=== PATIENT | female | born 1940 | race Caucasian/White ===

== ENCOUNTER → 2016-08-05 | Outpatient (CLI) | payer OTHER, MEDICARE | LOC: BMCIMAGING 14:02 | PROVIDERS: ATTEND Internal Medicine | DX: Z12.31 Encounter for screening mammogram for malignant neoplasm of breast (principal) | CPT/HCPCS: G0202 ==

== ENCOUNTER → 2016-08-26 | Outpatient (CLI) | payer OTHER, MEDICARE | LOC: BMCIMAGING 11:26 | PROVIDERS: ATTEND Internal Medicine | DX: R92.8 Other abnormal and inconclusive findings on diagnostic imaging of breast (principal) | CPT/HCPCS: G0206 ==

== ENCOUNTER → 2016-09-24 | Outpatient (CLI) | payer OTHER, MEDICARE | LOC: BMCIMAGING 09:36 | PROVIDERS: ATTEND Internal Medicine | DX: Z12.39 Encounter for other screening for malignant neoplasm of breast (principal); N63 Unspecified lump in breast | CPT/HCPCS: 76641; G0206 ==

== ENCOUNTER 2017-07-16 14:58 | Emergency (ER) | payer OTHER, MEDICARE ==
--- NOTE | 2017-07-16 15:00 | EDPHY ---
H & P Time Seen by Provider: 07/16/17 14:59 HPI/ROS: HPI: This is a 76-year-old female who presents with Chief Complaint: Mechanical fall, laceration over left eye Location: Quality: Duration: Signs and Symptoms: No bleeding, no radiation, no numbness, no weakness, no tingling, no incontinence, no decreased range of motion, no swelling, no pain, no fever Timing: Severity: Context: Patient arrives via EMS with complaints of mechanical fall and laceration above her left eyebrow. Last tetanus booster given in 2012. Denies LOC/head injury/neck pain/dizziness/nausea/vomiting/amnesia. Modifying Factors: Comment: ROS: see HPI Constitutional: No fever, no chills, no weight loss Eyes: No blurred vision Respiratory: No shortness of breath, no cough Cardiovascular: No chest pain Gastrointestinal: No nausea, no vomiting no diarrhea Genitourinary: No dysuria Extremities: No myalgias Neurologic: No weakness, no numbness Skin: No rashes Hematologic: No bruising, no bleeding MEDICAL/SURGICAL/SOCIAL HISTORY: Medical history: Generally healthy. Does not take any regular medications. Surgical history: Tonsillectomy Social history: CONSTITUTIONAL: awake and alert, no obvious distress HEENT: Atraumatic and normocephalic, PERRL, EOMI. no globe entrapment, no raccoon eyes. no Nevarez signs.Tympanic membranes clear. No tympanic membrane rupture. Nares patent; no septal hematoma. Oropharynx clear, no exudate and moist pink mucosa. No malocclusion. no dental trauma. Airway patent. No lymphadenopathy. NECK: supple, no midline tenderness, flexion 45 degrees, extension 45 degrees, right and left lateral flexion 45 degrees. No meningismus. Cardiovascular: Normal S1/S2, regular rate, regular rhythm, without murmur rub or gallop. PULMONARY/CHEST: Symmetrical and nontender. no crepitus. Clear to auscultation bilaterally. Good air movement. No accessory muscle usage. ABDOMEN: Soft, nondistended, nontender, no ecchymosis, no rebound, no guarding , no peritoneal signs, no masses or organomegaly. No CVAT. PELVIC: no pain with rocking; bilateral hips flexion 125 degrees, extension 30 degrees, with no pain internal rotation and no pain external rotation. BACK: No midline tenderness, no paraspinous spasm, deep tendon reflexes 2/2, no pain with straight leg raise EXTREMITIES: 2/2 pulses, no deformities, no clubbing, no cyanosis or edema. NEUROLOGICAL: no focal neuro deficits. GCS 15. SKIN: Warm and dry, no erythema. no rash. Good capillary refill. Source: Patient, EMS Exam Limitations: No limitations - Personal History Tetanus Vaccine Date: 2012 - Medical/Surgical History Hx Asthma: No Hx Chronic Respiratory Disease: No Hx Diabetes: No Hx Cardiac Disease: No Hx Renal Disease: No Hx Cirrhosis: No Hx Alcoholism: No Hx HIV/AIDS: No Hx Splenectomy or Spleen Trauma: No Other PMH: tonsilectomy - Social History Smoking Status: Former smoker Allergies/Adverse Reactions: No Known Allergies Allergy (Unverified 09/27/13 12:37) Home Medications: Medication Instructions Recorded Alprazolam 09/27/[address] Barksdale 10/07/13 Ciprofloxacin [Cipro] 500 mg PO BID #20 tab 01/18/15 metroNIDAZOLE [Flagyl] 500 mg PO BID #20 tab 01/18/15 Departure - Departure Referrals: Patient,NotPresent [Primary Care Provider] - As per Instructions
--- NOTE | 2017-07-16 15:05 | EDPHY ---
H & P Smoking Status: Former smoker Time Seen by Provider: 07/16/17 14:59 HPI/ROS: CHIEF COMPLAINT: Fall, laceration HISTORY OF PRESENT ILLNESS: The patient is a 76-year-old female who presents emergency department after tripping while getting on the bus. The patient was running for the bus when she fell. She struck her head on part of the bus. She stated laceration to her left brow. Patient did not lose consciousness. She states there was a doctor on the bus shoe applied pressure to her wound. Patient denies neck or back pain. No chest pain or shortness of breath. No abdominal pain. No pelvic pain. Patient has mild discomfort of her left cook. Minimal nausea. REVIEW OF SYSTEMS: My complete review of systems is negative except as mentioned in the HPI. ( Lorene Alamo) Allergies/Adverse Reactions: No Known Allergies Allergy (Unverified 09/27/13 12:37) Home Medications: Medication Instructions Recorded Alprazolam 09/27/13 Medical Decision Making Procedures: Procedure: Laceration repair. Verbal consent was obtained from the patient. The 4 cm deep, complex, vertical laceration left side of the forehead passing through the left eyebrow was anesthetized in the usual fashion using 6 mL of 0.5% bupivacaine with epinephrine. The wound was irrigated, draped and explored to its base with a gloved finger. There were no deep structures involved. No tendon injury was identified. The wound was repaired with 2 layer closure: #6, horizontal buried sutures of 5 0 Vicryl. Subcuticular running suture of 6 0 Vicryl was used to close the cutaneous layer. Good hemostasis was achieved and patient tolerated procedure well. Steri-Strips were applied. The procedure was performed by myself. (Ruby Rivera) ED Course/Re-evaluation: In the emergency department I met EMS on arrival. I took report from the provider. Patient was wearing his C-collar arrival. After my initial exam she had no spinal tenderness. Nexus was negative. The C-collar was removed. The patient did not lose consciousness. She has no focal deficits. I do not think she needs CT imaging. (Lorene Alamo) Differential Diagnosis: My differential includes but is not limited to laceration, skull fracture, foreign body, concussion, subarachnoid hemorrhage, subdural hematoma, epidural hematoma (Lorene Alamo) Departure - Departure Disposition: Home, Routine, Self-Care Clinical Impression: Laceration of brow without complication Qualifiers: Encounter type: initial encounter Qualified Code(s): S01.81XA - Laceration without foreign body of other part of head, initial encounter Condition: Good Instructions: Laceration (ED) Additional Instructions: Return with increasing headache, numbness, weakness, vomiting or any other concerns. Please allow the Steri-Strips to fall off on their own. Absorbable sutures were used to close your laceration today. They do not need to be removed as they will slowly dissolve on their own. Referrals: Patient,NotPresent [Unknown] - As per Instructions
[2017-07-16 16:58] VITALS: BP 125/90
== END 2017-07-16 17:09 | disposition home or self-care (01) ==
LOC: EDUNIT#
PROC: 08QPXZZ Repair Left Upper Eyelid, External Approach (ICD-10-PCS; principal; 2017-07-16)
DX: S01.112A Laceration without foreign body of left eyelid and periocular area, initial encounter (principal); Z87.891 Personal history of nicotine dependence; W01.198A Fall on same level from slipping, tripping and stumbling with subsequent striking against other object, initial encounter; Y99.8 Other external cause status; Y93.02 Activity, running